=== PATIENT | male | born 1995 | race African-American/Black ===

== ENCOUNTER 2019-03-04 13:32 | Emergency (ER) | payer BC, OTHER ==
[~2019-03-04] VITALS: Ht 165.1 cm; Wt 70.3 kg
[2019-03-04 13:32] VITALS: BP 115/76
[~2019-03-04 13:32] MED LIST: IBUPROFEN 600600 M1 PO; VALIUM5 MG PO
[2019-03-04 14:09] LABS: URINE BILIRUBIN NEGATIVE (Negative); URINE BLOOD NEGATIVE (Negative); URINE CLARITY CLEAR; URINE COLOR YELLOW; URINE GLUCOSE-RANDOM* NEGATIVE (Negative); URINE KETONES NEGATIVE (Negative); URINE LEUKOCYTES 2+ (Negative); URINE NITRITE NEGATIVE (Negative); URINE PROTEIN (DIPSTICK) NEGATIVE (Negative)
[2019-03-04 14:35] LABS: CASTS None Seen /LPF (None Seen); CRYSTALS None Seen /LPF (None Seen); SQUAMOUS None Seen /LPF (0-3)
[2019-03-04 14:36] LABS: URINE RBC 0-2 Rare /HPF (0-2); URINE WBC >25 Many /HPF (0-5)
== END 2019-03-04 14:16 | disposition home or self-care (01) ==
LOC: ER 13:32
PROVIDERS: Physician Assistant
DX: N34.2 Other urethritis (principal); E10.9 Type 1 diabetes mellitus without complications; Z88.0 Allergy status to penicillin